=== PATIENT | male | born 1950 | race Hispanic/Latino ===

== ENCOUNTER 2018-03-17 11:17 | Emergency (ER) | payer BC, MEDICARE ==
[~2018-03-17 11:17] MED LIST: ASPI-1005 PO; ATOR40TA71 PO; CARV6.2579 PO; CLOP75TA14 PO; FURO20TA6 PO; LINA5TAB PO; LISI2.5T2 PO
[2018-03-17] MEDS ORDERED: SODIUM CHLORIDE 0.9% 1000ML 1,000 ML IV ONE (11:41)
[2018-03-17 11:47] LABS: BASOPHILS % (AUTO) 0.3 % (0.0-5.0); EOSINOPHILS % (AUTO) 1.5 % (0.0-8.0); HEMATOCRIT 51.2 % (42-54); LYMPHOCYTES % (AUTO) 11.5 % (21.0-51.0); MEAN CORPUSCULAR HEMOGLOBIN 30.1 pg (27.0-33.0); MEAN CORPUSCULAR VOLUME 88.4 fL (79-99); MONOCYTES % (AUTO) 8.6 % (3.0-13.0); NEUTROPHILS % (AUTO) 78.1 % (40.0-77.0); PLATELET COUNT (AUTO) 210 K/uL (130-400); RED BLOOD CELL COUNT(AUTO) 5.79 MIL/uL (4.50-6.20); RED CELL DISTRIBUTION WIDTH 14.4 % (11.0-15.5); WHITE BLOOD COUNT (AUTO) 12.4 K/uL (4.8-10.8)
[2018-03-17 11:54] LABS: CREATININE 1.2 mg/dL (0.5-1.5); POTASSIUM 4.7 mmol/L (3.5-5.1)
[2018-03-17 11:59] LABS: ALBUMIN 3.7 g/dL (3.5-5.0); BILIRUBIN,TOTAL 0.5 mg/dL (0.2-1.0); TOTAL PROTEIN, SERUM 8.5 g/dL (6.0-8.3)
[2018-03-17] MEDS ORDERED: ONDANSETRON ODT 4 MG TAB ONE (12:48)
== END 2018-03-17 13:16 | disposition home or self-care (01) ==
LOC: EDH 11:17
DX: E11.65 Type 2 diabetes mellitus with hyperglycemia (principal); I10 Essential (primary) hypertension
CPT/HCPCS: 36415; 80053; 85025; 96360; 99284; J7030

== ENCOUNTER 2018-09-05 21:00 | Emergency (ER) | payer MEDICARE ==
[2018-09-05] MEDS ORDERED: ALTEPLASE 100 MG VIAL ONE (21:56)
[2018-09-05] MEDS ORDERED: LABETALOL 20 MG/4 ML DISP.SYRIN IV ONE (22:00)
[2018-09-05 22:03] LABS: BASOPHILS % (AUTO) 0.6 % (0.0-5.0); EOSINOPHILS % (AUTO) 3.1 % (0.0-8.0); LYMPHOCYTES % (AUTO) 20.9 % (21.0-51.0); MEAN CORPUSCULAR HEMOGLOBIN 29.7 pg (27.0-33.0); MEAN CORPUSCULAR HGB CONC 33.7 g/dL (32.0-36.0); MEAN CORPUSCULAR VOLUME 88.2 fL (79-99); MONOCYTES % (AUTO) 13.3 % (3.0-13.0); NEUTROPHILS % (AUTO) 62.1 % (40.0-77.0); PLATELET COUNT (AUTO) 214 K/uL (130-400); RED BLOOD CELL COUNT(AUTO) 5.44 MIL/uL (4.50-6.20); RED CELL DISTRIBUTION WIDTH 14.8 % (11.0-15.5); WHITE BLOOD COUNT (AUTO) 9.6 K/uL (4.8-10.8)
[2018-09-05 22:16] LABS: CARBON DIOXIDE 29 mmol/L (21-32); CHLORIDE 99 mmol/L (101-111); CREATININE 1.2 mg/dL (0.5-1.5); GLOMERULAR FILTR. RATE CALC 64 mL/min (>60); GLUCOSE,RANDOM 172 mg/dL (70-105); POTASSIUM 4.3 mmol/L (3.5-5.1); SODIUM SERUM 138 mmol/L (136-145); UREA NITROGEN, BLOOD 22 mg/dL (7-18)
[2018-09-05] MEDS ORDERED: NICARDIPINE IN NACL, ISO-OSM 200 ML IV ONE (22:21)
[2018-09-05 22:25] LABS: BILIRUBIN,DIRECT 0.1 mg/dL (0.0-0.3); BILIRUBIN,TOTAL 0.4 mg/dL (0.2-1.0)
[2018-09-05 22:26] LABS: ALANINE AMINOTRANSFERASE 48 U/L (12-78); ALBUMIN 3.4 g/dL (3.5-5.0); ALCOHOL, BLOOD < 3 mg/dL (0-10); ASPARTATE AMINOTRANSFERASE 78 U/L (10-37); LIPASE 138 U/L (114-286); TOTAL PROTEIN, SERUM 8.3 g/dL (6.0-8.3)
[2018-09-05 22:40] LABS: B-TYPE NATRIURETIC PEPTIDE 515 pg/mL (0-100)
[2018-09-05] MEDS ORDERED: SODIUM CHLORIDE 0.9% 500ML 500 ML IV ONE (23:15)
[2018-09-05 23:34] LABS: APPEARANCE,URINE Clear (CLEAR); BILIRUBIN,URINE Negative (NEGATIVE); COLOR,URINE Yellow (YELLOW); GLUCOSE, URINE (UA) Negative (NEGATIVE); KETONES,URINE Negative (NEGATIVE); LEUKOCYTE ESTERASE ,URINE Moderate (NEGATIVE); NITRATE,URINE Negative (NEGATIVE); OCCULT BLOOD,URINE Large (NEGATIVE); PH,URINE 6.5 (5.0-8.0); PROTEIN,URINE Trace (NEGATIVE)
[2018-09-05 23:44] LABS: AMPHET/METH SCREEN,URINE NEGATIVE (NEGATIVE); BARBITURATE SCREEN, URINE NEGATIVE (NEGATIVE); BENZODIAZEPINES SCREEN,URINE NEGATIVE (NEGATIVE); CANNABINOID SCREEN,URINE NEGATIVE (NEGATIVE); COCAINE SCREEN,URINE NEGATIVE (NEGATIVE); OPIATE SCREEN,URINE NEGATIVE (NEGATIVE); PHENCYCLIDINE SCREEN,URINE NEGATIVE (NEGATIVE)
[2018-09-05 23:49] LABS: BACTERIA,URINE Few /HPF (None Seen); RBC,URINE 51-100 /HPF (0-1)
== END 2018-09-06 05:11 ==
LOC: EDH 21:00
DX: I63.9 Cerebral infarction, unspecified (principal); E11.9 Type 2 diabetes mellitus without complications; I10 Essential (primary) hypertension; Z98.890 Other specified postprocedural states
CPT/HCPCS: 36415; 37195; 70450; 70496; 70498; 80053; 80076; 80305; 81001; 82009; 82948; 83690; 83880; 84484; 85025; 93005; 96365; 96375; 96376; 99291; G0480; J2997; J3490; J7040